=== PATIENT | male | born 1995 | race Caucasian/White ===

== ENCOUNTER 2018-06-03 07:59 | Emergency (ER) | payer OTHER, SELFPAY ==
[2018-06-03 08:00] VITALS: BP 121/85; PULSE 83; RESP 16; TEMP 36.6; O2SAT 99; BMI 26.0
--- NOTE | 2018-06-03 08:04 | ED.DCSUM_ITS ---
- ER Visit Summary Date of Service: 06/03/18 Chief Complaint: Bat exposure History of Present Illness: The patient is a 22 M presenting to the emergency department secondary to an exposure to a bath. Patient reports that he woke up last week with a bat in his bedroom. He reported to an outside facility where he received the rabies vaccine but not to the rabies immunoglobulin. Patient states that he did not notice any sort of bite wounds on his body. He denies any symptoms at this time. Physical Examination: Vital signs within normal limits. Well-nourished male no acute distress. Moist mucous membranes heart regular no respiratory distress noted no extremity tenderness skin normal color no bite wounds patient alert and oriented Test Results: None indicated Emergency Department Course and Treatment: Patient was ordered rabies immunoglobulin and vaccine. He will continue following with the health department for the remainder of his series of rabies vaccines. Disposition: Discharge Impression: 1. Visit for rabies vaccine This note was generated with [employer] dictation software. It may contain incorrect words, spelling, and punctuation that were not noted in review of the chart prior to signing ED Disposition - Plan for ED Patient: Disposition: Home or Assisted Living Chief Complaint: Bite Diagnosis: Exposure to bat without known bite Instructions: Rabies Immune Globulin (Human) Solution for injection, Rabies Virus Strain [id number] antigen (Propiolactone Inactivated)... Additional Instructions: Followup with the health dept for the remainder of your vaccine series
[2018-06-03] MEDS: Rabies Vaccine,Human Diploid 2.5 UNITS Vial IM (09:08)
[2018-06-03] MEDS: Rabies Immune Globulin 150 U/ML 2ml Vial 1740 U IM (09:25)
== END 2018-06-03 09:36 | disposition home or self-care (01) ==
PROVIDERS: Emergency Provider Emergency Medicine
DX: Z20.3 Contact with and (suspected) exposure to rabies (principal); Z23 Encounter for immunization
CPT/HCPCS: 90375; 90675; 96372; 99282

== ENCOUNTER → 2018-06-07 07:36 | Outpatient (CLI) | payer OTHER, SELFPAY ==
[2018-06-07 07:02] VITALS: BP 118/69; PULSE 72; RESP 15; TEMP 36.8; O2SAT 98; BMI 28.4
[2018-06-07 07:29] VITALS: BP 129/70; PULSE 87; RESP 16; TEMP 36.1; O2SAT 98; BMI 25.7
[2018-06-07] MEDS: Rabies Vaccine,Human Diploid 2.5 UNITS Vial IM (07:32)
== END | disposition home or self-care (01) ==
PROVIDERS: Visit Provider Emergency Medicine
DX: Z23 Encounter for immunization (principal)
CPT/HCPCS: 90675; 96372

== ENCOUNTER 2018-06-14 20:01 | Outpatient (CLI) | payer OTHER, SELFPAY ==
[2018-06-14 20:02] VITALS: BP 128/63; PULSE 93; RESP 14; O2SAT 97; BMI 26.2
[2018-06-14] MEDS: Rabies Vaccine,Human Diploid 2.5 UNITS Vial IM (21:07)
--- NOTE | 2018-06-14 21:08 | ED.RN ---
medication would not scan.
== END 2018-06-14 21:40 | disposition home or self-care (01) ==
LOC: ED 06-15 13:28
DX: Z23 Encounter for immunization (principal)
CPT/HCPCS: 96372; 90675